=== PATIENT | female | born 1990 | race Caucasian/White ===

== ENCOUNTER 2018-10-14 06:39 | Emergency (ER) | payer BC ==
[~2018-10-14] VITALS: Ht 157.5 cm; Wt 113.6 kg
[~2018-10-14 06:39] MED LIST: MOTRIN 600600 MG/TAB PO; NO HOME MEDICATIONS; NORCO 325 MG-51 TAB PO; PERCOCET 325 MG1 TA2 PO; PRENATAL
[2018-10-14 06:45] VITALS: TEMP 98.6
[2018-10-14 07:41] LABS: BASO % 0.5 % (0.0-2.0); EOS # 0.2 (0.0-0.7); GRAN # 6.3 (1.4-6.5); GRAN % 72.1 % (42.2-75.2); HEMATOCRIT 41.9 % (37.0-47.0); HEMOGLOBIN 13.4 g/dl (12.5-16.0); LYMPH # 1.8 (1.2-3.4); LYMPH % 20.4 % (20.0-51.0); MEAN CELL VOLUME 85 fl (80.0-100.0); MEAN CORPUSCULAR HEMOGLOBIN 27 pg (27.0-31.0); MEAN CORPUSCULAR HGB CONC 32 g/dl (33.0-37.0); MEAN PLATELET VOLUME 10.8 fl (7.4-10.4); MONO # 0.4 (0.1-0.6); MONO % 4.7 % (1.7-9.3); PLATELET COUNT 269 K/mm3 (130-400); RED BLOOD COUNT 4.92 M/mm3 (4.10-5.30)
[2018-10-14 07:55] LABS: ALBUMIN 4.5 gm/dL (3.5-5.0); BILIRUBIN,TOTAL 0.2 mg/dL (0.0-1.0); C-REACTIVE PROTEIN 1.1 mg/dL (0.0-0.9); CALCIUM 9.7 mg/dL (8.4-10.2); CREATININE, serum 0.8 mg/dL (0.52-1.25); POTASSIUM 4.4 mmol/L (3.4-5.0)
[2018-10-14 08:12] LABS: COLLECTION METHOD CLEAN CATCH
[2018-10-14] MEDS ORDERED: NORCO 325 MG-51 TAB PO (08:18)
[2018-10-14 08:20] LABS: AMORPHOUS CRYSTAL Present /uL; MUCOUS Present /lpf; PH 8 (5-8); SQUAMOUS EPITHELIAL 0-2 /hpf; URINE APPEARANCE Cloudy; URINE BACTERIA None Seen /hpf; URINE BILIRUBIN Negative (NEGATIVE); URINE BLOOD Negative (NEGATIVE); URINE COLOR Yellow; URINE GLUCOSE Negative (NEGATIVE); URINE KETONE Negative (NEGATIVE); URINE LEUKOCYTE ESTERASE Negative (NEGATIVE); URINE NITRATE Negative (NEGATIVE); URINE PROTEIN(semi-quant) 2+ (NEGATIVE); URINE RBC 0-2 /hpf; URINE UROBILINOGEN Negative (NEGATIVE)
[2018-10-14 08:39] VITALS: BP 134/68; PULSE 60
== END 2018-10-14 08:41 | disposition home or self-care (01) ==
LOC: COL.ER 06:39
PROVIDERS: Family Medicine
DX: K80.50 Calculus of bile duct without cholangitis or cholecystitis without obstruction (principal); Z98.890 Other specified postprocedural states
CPT/HCPCS: J2270; J2405; J7030

== ENCOUNTER 2019-11-11 10:32 | Observation (INO) | payer BC ==
[~2019-11-11] VITALS: Ht 157.5 cm; Wt 111.4 kg
[2019-11-11 11:06] LABS: BASO % 0.2 % (0.0-2.0); EOS # 0.1 (0.0-0.7); EOS % 0.5 % (0-4.0); GRAN # 11.1 (1.4-6.5); GRAN % 78.5 % (42.2-75.2); HEMATOCRIT 44.6 % (37.0-47.0); HEMOGLOBIN 14.4 g/dl (12.5-16.0); LYMPH # 1.9 (1.2-3.4); LYMPH % 13.2 % (20.0-51.0); MEAN CELL VOLUME 84 fl (80.0-100.0); MEAN CORPUSCULAR HEMOGLOBIN 27 pg (27.0-31.0); MEAN CORPUSCULAR HGB CONC 32 g/dl (33.0-37.0); MEAN PLATELET VOLUME 10.7 fl (7.4-10.4); MONO % 7.3 % (1.7-9.3); PLATELET COUNT 292 K/mm3 (130-400); REDCELL DISTRIBUTION WIDTH-CV 12.9 % (11.5-14.5)
[2019-11-11 11:18] LABS: ALBUMIN 4.8 gm/dL (3.5-5.0); BILIRUBIN,TOTAL 0.6 mg/dL (0.0-1.0); CALCIUM 9.7 mg/dL (8.4-10.2); CREATININE, serum 0.7 (0.52-1.25); POTASSIUM 4.3 mmol/L (3.4-5.0); TOTAL PROTEIN 8.9 gm/dL (6.4-8.2)
[2019-11-11 15:32] VITALS: BP 133/65; PULSE 78; TEMP 98.4
--- NOTE | 2019-11-11 15:52 | NUR ---
Pt came to room from ER, she was into ER with right sided pain.She is alert and orientated x4. She stated that she was having pain on the right side of her abdomen.She was given pain medication at this time. She is scheduled to have surgery in the morning. She is currently laying in bed and has no other complaints at this time. Pt is independent with ambulating. IV site is in her right AC. She currently has fluids running at this time. Call light is within reach
[2019-11-11 20:28] VITALS: BP 118/64; PULSE 97; TEMP 99.5
--- NOTE | 2019-11-11 22:16 | NUR ---
Patient doing well tonight. alert and oriented. c/o mild pain to RUQ, prn percocet given. cipro infusing without issues into R AC IV. consent for surgery in am signed and in chart. to be made NPO at midnight. no further needs at this time. will continue to monitor.
[2019-11-12] VITALS (11 sets, daily range): BP systolic 108–130; BP diastolic 51–71; PULSE 65–93; TEMP 97.8–99.5
--- NOTE | 2019-11-12 05:46 | NUR ---
PRN PERCOCET GIVEN FOR MODERATE PAIN. IV FLUIDS INFUSING WITHOUT ISSUE. CONSENT SIGNED AND IN CHART. PATIENT NPO SINCE MIDNIGHT. REPORT OFF TO DAY SHIFT.
--- NOTE | 2019-11-12 07:17 | NUR ---
Lying in bed with eyes open. Denies pain at this time. Denies nausea. Is aware that she is NPO for procedure today. No needs at this time.
--- NOTE | 2019-11-12 09:21 | NUR ---
Public Health Sanitarian Technician met with patient to discuss discharge planning. Patient lives in [place] with her boyfriend Jason (ph#[phone]) and her two children. Patient is employed at [employer]. Patient does not have primary care established but reports her OBGYN, Dr. Desir has taken labs and monitored her over the years. Patient states she used to see Dr. Ellis before he retired. Patient expressed that she may try to get established with Dr. Rivera soon. Patient obtains medications from [facility] on [address] with no difficulties. Patient does not use any DME and is independent with ADLS. Patient does not have Advance Directives and was not interesting in setting up DPOA-[facility] at this time. Patient plans to return home upon discharge with her boyfriend providing transportation. No additional needs at this time.
--- NOTE | 2019-11-12 10:12 | NUR ---
Patient to surgery via bed by [facility] surgical staff.
--- NOTE | 2019-11-12 11:31 | NUR ---
Initial visit; Patient thanked John for looking in on her and offering spiritual care, especially God's blessings.
[2019-11-12] MEDS ORDERED: FLAGYL500 MG PO (13:59)
[2019-11-12] MEDS ORDERED: CIPRO 500MG TA500 MG PO (13:59)
[2019-11-12] MEDS ORDERED: PERCOCET 325 MG1 TA2 PO (14:00)
[2019-11-12] MEDS ORDERED: MOTRIN 600600 MG/TAB PO (14:00)
[2019-11-12] MEDS ORDERED: NEURONTIN100 MG/CAP PO (14:01)
--- NOTE | 2019-11-12 14:22 | NUR ---
To room via bed by PACU staff. Rates pain in abd 4/10, says that it is due to the ride up and hitting all of the bumps. Lap sites x5 with swiftset in place, all edges well approximated, no redness/swelling/discharge. Spouse in room with the patient.
--- NOTE | 2019-11-12 16:26 | NUR ---
IV fluids dc'd and site INT'd. Patient ambulates to bathroom. Voids without difficulty. Ambulates in halls to joint center and back to room. Would like to get pain medication as she is aware of the pain in her abd and she does not want it to get out of control. Administered Percocet as prescribed. Patient returns to bed. Assisted into comfortable position. Denies further needs at this time.
--- NOTE | 2019-11-12 17:58 | NUR ---
Reviewed discharge instructions with the patient. Questions answered. Documents signed. Provided discharge packet to the patient. INT dc'd with catheter intact. Applied 2x2 to site and reinforced with coban. Patient will push button when ready to walk out.
--- NOTE | 2019-11-12 18:08 | NUR ---
Patient ready for discharge. Has all personal belongings. Spouse is here to take patient home. Patient taken out to POV via wheelchair.
== END 2019-11-12 18:09 | disposition home or self-care (01) ==
LOC: COL.ER 10:32 → SURG 12:45
PROVIDERS: Physician Assistant; ADMIT Surgery
DX: K80.12 Calculus of gallbladder with acute and chronic cholecystitis without obstruction (principal); Z88.0 Allergy status to penicillin; Z79.899 Other long term (current) drug therapy; E66.9 Obesity, unspecified; Z68.41 Body mass index [BMI] 40.0-44.9, adult
CPT/HCPCS: A4216; G0378; J0744; J1885; J2405; J2704; J3010; J7030; J7120; Q9967

== ENCOUNTER 2022-04-30 03:29 | Emergency (ER) | payer BC ==
[~2022-04-30] VITALS: Ht 157.5 cm; Wt 120.5 kg
[~2022-04-30 03:29] MED LIST changes: +CIPRO 500MG TA500 MG PO; +FLAGYL500 MG PO; +NEURONTIN100 MG/CAP PO
[2022-04-30 03:33] VITALS: TEMP 97.6
[2022-04-30 04:04] LABS: COLLECTION METHOD CLEAN CATCH
[2022-04-30 04:08] LABS: BASO # 0.1 K/mm3 (0.0-0.2); BASO % 0.4 % (0.0-2.0); EOS # 0.3 K/mm3 (0.0-0.7); EOS % 2.2 % (0.0-4.0); GRAN # 8.2 K/mm3 (1.4-6.5); GRAN % 61.1 % (42.2-75.2); HEMATOCRIT 41.1 % (37.0-47.0); HEMOGLOBIN 13.6 g/dl (12.5-16.0); LYMPH # 4.1 K/mm3 (1.2-3.4); LYMPH % 30.4 % (20.0-51.0); MEAN CELL VOLUME 85 fl (80.0-100.0); MEAN CORPUSCULAR HEMOGLOBIN 28 pg (27-31); MEAN CORPUSCULAR HGB CONC 33 g/dl (33.0-37.0); MEAN PLATELET VOLUME 10.3 fl (7.4-10.4); MONO # 0.8 K/mm3 (0.1-0.6); MONO % 5.6 % (1.7-9.3); PLATELET COUNT 310 K/mm3 (130-400); RED BLOOD COUNT 4.83 M/mm3 (4.10-5.30); REDCELL DISTRIBUTION WIDTH-CV 12.8 % (11.5-14.5)
[2022-04-30 04:14] LABS: URINE COLOR Yellow (YELLOW)
[2022-04-30 04:15] LABS: URINE APPEARANCE Clear (CLEAR/HAZY); URINE BLOOD 2+ (NEGATIVE); URINE GLUCOSE Negative (NEGATIVE); URINE KETONE Negative (NEGATIVE); URINE NITRATE Negative (NEGATIVE); URINE PROTEIN(semi-quant) TRACE (NEGATIVE); URINE UROBILINOGEN 0.2 E.U/dL (0.2-1.0)
[2022-04-30 04:23] LABS: CALCIUM 9.5 mg/dL (8.4-10.2); CREATININE, serum 0.91 mg/dL (0.57-1.11); POTASSIUM 3.9 mmol/L (3.5-4.5)
[2022-04-30 06:28] LABS: MUCOUS Present (NOT PRESENT); URINE BACTERIA Rare /hpf (NONE SEEN); URINE CALCIUM OXALATE CRYSTAL Present (NOT PRESENT); URINE RBC >50 /hpf (0-2)
[2022-04-30] MEDS ORDERED: MACROBID 1100 MG/CAP PO (06:49)
[2022-04-30] MEDS ORDERED: REGLAN 10MG10 MG/TAB PO (06:49)
[2022-04-30] MEDS ORDERED: ROXICODONE 55 MG/TAB PO (06:49)
[2022-04-30 06:54] VITALS: BP 148/95; PULSE 78
== END 2022-04-30 07:00 | disposition home or self-care (01) ==
LOC: COL.ER 03:29
PROVIDERS: Emergency Medicine
DX: N13.2 Hydronephrosis with renal and ureteral calculous obstruction (principal); D72.829 Elevated white blood cell count, unspecified; Z88.1 Allergy status to other antibiotic agents; Z32.02 Encounter for pregnancy test, result negative
CPT/HCPCS: J1170; J1885; J2765